=== PATIENT | male | born 2000 | race Caucasian/White ===

== ENCOUNTER 2024-08-26 22:17 | Emergency (ER) | payer BC ==
[~2024-08-26] VITALS: Ht 167.6 cm; Wt 81.6 kg
[2024-08-27 00:12] VITALS: PULSE 97; RESP 20; TEMP 98.6; O2SAT 100
== END 2024-08-27 01:25 | disposition home or self-care (01) ==
LOC: ER 22:23
DX: M79.632 Pain in left forearm (principal); V43.52XA Car driver injured in collision with other type car in traffic accident, initial encounter; Y92.488 Other paved roadways as the place of occurrence of the external cause
CPT/HCPCS: 99282